=== PATIENT | male | born 1985 | race Caucasian/White ===

== ENCOUNTER 2020-04-19 23:00 | Emergency (ER) | payer SELFPAY ==
[~2020-04-19] VITALS: Ht 175.3 cm; Wt 68.0 kg
[2020-04-19 23:02] VITALS: BP 127/72
--- NOTE | 2020-04-19 23:15 | NUR ---
PT ASSESSED AND EVALUATED BY OUSMANE ARRIETA.
[2020-04-19 23:20] VITALS: BP 127/72
--- NOTE | 2020-04-19 23:20 | NUR ---
PATIENT [facility] [employer]. PATIENT EXAMINED BY DR. ARRIETA. PATIENT MEDICALLY CLEARED AND RELEASED IN CUSTODY IN STABLE CONDITION. ORIGINAL PRE-BOOK FORM GIVEN TO OFFICER Liz SIMONS .
== END 2020-04-19 23:20 ==
LOC: MED 23:00
DX: L98.499 Non-pressure chronic ulcer of skin of other sites with unspecified severity (principal); Z88.0 Allergy status to penicillin; Z02.89 Encounter for other administrative examinations
CPT/HCPCS: 99283